=== PATIENT | female | born 1945 | race Caucasian/White ===

== ENCOUNTER → 2016-11-17 | Outpatient (CLI) | payer OTHER, MEDICARE | LOC: CIMAGING 08:32 | DX: Z12.31 Encounter for screening mammogram for malignant neoplasm of breast (principal) | CPT/HCPCS: G0202 ==

== ENCOUNTER 2018-05-10 11:51 | Emergency (ER) | payer OTHER, MEDICARE ==
[2018-05-10] MEDS ORDERED: TDAP ADULT 0.5 ML INJ (BOOSTRIX) IM ONE (14:04)
--- NOTE | 2018-05-10 14:05 | EDPHY ---
H & P Time Seen by Provider: 05/10/18 12:09 HPI/ROS: Chief complaint: [ Fall, laceration right side of the forehead] HPI: [ This is a medically stable healthy 9-year-old male who recalls going down a patent slip in the rocks and falling onto her right side sustainin a laceration of right side of her forehead just occasion to the eye / the orbit. This just happened an hour ago. There is no antecedent symptoms such as not lightheadedness or palpitations or sense of shortness of breath or doom. She notes that it was a slip and fall. 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 The headache is not enough to that she bother taking any medications for this. ROS Neuro: [No] numbness or tingling or loss of sensation Smoking Status: Former smoker Physical Exam: Gen: Well-developed. Well-nourished. No odor of alcohol. Nontoxic. Afebrile. HEENT: There is a stellate laceration to the right side of the orbit. There is no bony tenderness. This laceration encompasses a total of 4 cm. There is no bony tenderness and I cannot visualize the bone. The pupils are equal reactive to light. Tympanic membranes are clear. She has normal phonation. No bony tenderness to the zygoma or the supraorbital rim. NV Status: Intact Neurological: Her memory is intact. Cranial nerves 2-12 are intact. She has normal gait. Stable on her feet. Constitutional: Initial Vital Signs Temperature (C) 37.1 C 05/10/18 12:08 Heart Rate 92 05/10/18 12:08 Respiratory Rate 18 05/10/18 12:08 Blood Pressure 161/96 H 05/10/18 12:08 O2 Sat (%) 99 05/10/18 12:08 O2 Delivery Mode Room Air Allergies/Adverse Reactions: codeine Allergy (Severe, Verified 05/10/18 12:12) Other-Enter Comments Sulfa (Sulfonamide Antibiotics) Allergy (Severe, Verified 05/10/18 12:12) Vomiting Penicillins Allergy (Unknown, Verified 05/10/18 12:12) Unknown Home Medications: Medication Instructions Recorded CO Q-10 03/16/15 Multivitamin (OTC) 03/16/15 Vitamin D3 (OTC) 03/16/15 Medical Decision Making Procedures: Procedure: Laceration repair. Options presented to [patient], consented to repair. After skin prep with [chloraseptic] the wound was anesthesized with [locally infiltrated] with [lidocaine 1 %] [with epinephrine] the wound was [ Cleansed with irrigation by Tech] The length of the wound was 4 cm. Inspection and exploration of the wound, with gloved finger and forceps ,prior to closure revealed no evidence of foreign body and no involvement of deeper structures. Closure was obtained using at 1st a pursestring 6 0 nylon suture at the apex of the stellate laceration followed by a series of interrupted 5 0 Vicryl Vicryl. Then the arms of each stellate portion of the laceration were closed with a running 6 0 nylon. She tolerated this well. Estimated blood loss minimal. At the end of the procedure, wound edges were well approximated and hemostasis was achieved. Patient tolerated procedure well. ED Course/Re-evaluation: At 1st we had a lengthy discussion regarding indications for CT scan. I offered a CT scan but do not feel it is compelling. This was a ground level fall though granted she is over 67. The patient has declined a CT scan, assuming the risk. Her will observe her and IV outlined at length that she is to be 0 defer 3 hr with some form of functionality testing such as reading, operative remote of the TV, as well as eating. Further explained to her the symptomatology of a concussion and she watch out for any progression. Thereby of a advocated a rest period, before she 100 takes anything to be certain that she is asymptomatic. She was urged overtime with respect to getting up walking about both up to the bathroom as well as for the discharge and was neurologically intact and remains so Suture removal in approximately 5 days. Though this could be done here, it would be optimal time for follow-up recheck regarding head injury with her PCP at that point in time. - Data Points Medications Given: Discontinued Medications Diphtheria/Tetanus/Acell Pertussis (Boostrix) 0.5 ml IM .ONCE ONE Stop: 05/10/18 14:05 Last Admin: 05/10/18 14:27 Dose: 0.5 ml Departure - Departure Disposition: Home, Routine, Self-Care Clinical Impression: Facial laceration Qualifiers: Encounter type: initial encounter Qualified Code(s): S01.81XA - Laceration without foreign body of other part of head, initial encounter Head injury due to trauma Qualifiers: Encounter type: initial encounter Qualified Code(s): S09.90XA - Unspecified injury of head, initial encounter Condition: Good Instructions: Laceration (ED), Concussion (ED), Head Injury (ED) Additional Instructions: It is imperative that he rest for the next few days: No house chores for 48 hr Awakened every 3 hr for the next 24 hr Tylenol as allowed for the pain but no ibuprofen Light diet. No showering for 48 hr, however bathing is allowed Wash her hair beginning tomorrow however only in the kitchen sink. Remember no showing for 48 hr Sutures out in 5 days, either here or with the PCP Brain recheck in 4-5 days with her PCP, call tomorrow to set that up Clean the wound twice daily with hydrogen peroxide and apply bacitracin, beginning tomorrow Referrals: NONE *PRIMARY CARE P,. [Primary Care Provider] - As per Instructions
[2018-05-10 14:26] VITALS: BP 152/80
== END 2018-05-10 14:24 | disposition home or self-care (01) ==
LOC: CED 11:51
PROC: 0HQ1XZZ Repair Face Skin, External Approach (ICD-10-PCS; principal; 2018-05-10)
DX: S01.81XA Laceration without foreign body of other part of head, initial encounter (principal); W01.198A Fall on same level from slipping, tripping and stumbling with subsequent striking against other object, initial encounter; Y93.01 Activity, walking, marching and hiking; Y92.828 Other wilderness area as the place of occurrence of the external cause; Z23 Encounter for immunization
CPT/HCPCS: 90471-ER; 99283-ER